=== PATIENT | female | born 1985 | race Caucasian/White ===

== ENCOUNTER → 2019-02-07 10:23 | Outpatient (CLI) | payer OTHER, SELFPAY ==
[2019-02-07 12:12] LABS: Add Manual Diff / Slide Review NO; Basophils Absolute Auto 0 /uL (0-100); Basophils Percent Auto 0.4 % (0-2); Eosinophils Absolute Auto 100 /uL (0-450); Eosinophils Percent Auto 1.5 % (2-4); Hematocrit 38.3 % (36-46); Hemoglobin 12.8 g/dL (12.0-16.0); Lymphocytes Absolute Auto 1300 /uL (1100-4500); Lymphocytes Percent Auto 21.4 % (25-40); Mean Corpuscular HGB Conc 33.5 % (30-36); Mean Corpuscular Hemoglobin 31.7 PG (26-34); Mean Corpuscular Volume 94.8 fL (80-100); Monocytes Absolute Auto 400 /uL (0-900); Monocytes Percent Auto 6.4 % (3-14); Neutrophils Absolute Auto 4200 /uL (1500-7000); Neutrophils Percent Auto 70.3 % (50-75); Platelet Count 225 X10^3/uL (150-400); Red Blood Cell Count 4.04 X10^6/uL (4.0-5.2); Red Cell Distribution Width 12.5 % (11.6-14.8)
[2019-02-07 12:21] LABS: Appearance Urine UA CLEAR; Bilirubin Urine UA NEGATIVE (NEGATIVE); Color Urine UA YELLOW; Glucose Urine UA NEGATIVE (Negative); Ketones Urine UA NEGATIVE (NEGATIVE); Leukocyte Esterase Urine UA NEGATIVE (NEGATIVE); Nitrite Urine UA NEGATIVE (Negative); Occult Blood Urine UA NEGATIVE (Negative); Protein Urine UA NEGATIVE (Negative); Specific Gravity Urine UA <=1.005 (1.000-1.035); Urobilinogen Urine UA 0.2 E.U./dL (0.2)
[2019-02-07 12:29] LABS: pH Urine UA 6.5 (4.5-8.0)
[2019-02-07 15:38] LABS: Hepatitis B Surface Antigen NEGATIVE s/c (NEGATIVE)
[2019-02-07 15:55] LABS: HIV 1 & 2 Ab/Ag 4th Gen Combo NEGATIVE (NEGATIVE); Hep C Virus Ab w/Reflex Quant NEGATIVE s/c (NEGATIVE)
[2019-02-09 16:46] LABS: Varicella IgG Antibody < 135.00 Index (< 135.00)
[2019-02-09 19:37] LABS: RPR Screen Nonreactive (Nonreactive)
== END ==
PROVIDERS: PCP Nurse Practitioner Family; Visit Provider Specialist
DX: O09.529 Supervision of elderly multigravida, unspecified trimester (principal); Z34.81 Encounter for supervision of other normal pregnancy, first trimester
CPT/HCPCS: 36415; 80055; 81003; 81420; 86787; 86803; 86850; 86900; 86901; 87077; 87086; 87389

== ENCOUNTER → 2019-03-15 15:20 | Outpatient (CLI) | payer OTHER, SELFPAY ==
[2019-03-20 16:37] LABS: AFP, Serum 30.7 ng/mL; Calc Gestational Age 18.9; Est Date Determined by ULTRASOUND; Maternal Weight 224 lbs; Mother Ethnic Origin CAUCASIAN; Number of Fetuses 1; Prev Pregnancies Down Syndrome N
== END ==
PROVIDERS: Family Provider Nurse Practitioner Family; PCP Nurse Practitioner Family; Visit Provider Specialist
DX: Z34.82 Encounter for supervision of other normal pregnancy, second trimester (principal); Z3A.18 18 weeks gestation of pregnancy
CPT/HCPCS: 36415; 82105

== ENCOUNTER → 2019-03-24 14:14 | Outpatient (CLI) | payer OTHER, SELFPAY ==
--- NOTE | 2019-03-24 14:17 | DI.US.S_ITS ---
PROCEDURE: US OB >= 14 WEEKS FETUS INDICATIONS: ANATOMY OUTSIDE/PRIOR DATING DATA: Last menstrual period (LMP): 11/10/18 LMP-based estimated date of delivery (CARMELINA): 08/18/19. First dating scan (date and location): 01/18/19. Estimated date of delivery (CARMELINA) from first dating scan: 08/10/19. TECHNIQUE: Real-time scanning was performed of the fetus, with image documentation and biometric measurements. COMPARISON: [facility], , OB <= 14 WEEKS FETUS, 01/18/2019, 10:17. FINDINGS: General: A single living intrauterine gestation is present. Presentation: Breech. Placenta: Placental position is anterior, without previa. Amniotic fluid index: 15.2 cm, normal range is 5-24 cm. heart rate: 150 beats per minute. Maternal cervical canal: 3.4 cm long. Normal lower limit is 2.5 cm. biometrics: Biparietal diameter: 20 weeks 1 day Head circumference: 20 weeks 6 days Abdominal circumference: 19 weeks 6 days Femur length: 20 weeks 2 days Estimated gestational age from initial scan: 20 weeks 1 day Composite gestational age from present scan: 20 weeks 2 days Estimated weight and percentile: 335 g; 45 percentile Measurement variability for biometric dating: +/- 7 days from 14 weeks to 15 weeks 6 days gestation, +/- 10 days from 16 weeks to 21 weeks 6 days gestation, +/- 2 weeks from 22 weeks to 27 weeks 6 days gestation, +/- 3 weeks for 28 weeks gestation or later. weight reference: 4500 g or EFW >90/95% is considered macrosomia or large for gestational age. EFW <10% is small for gestational age. EFW 5% or less is considered intra-uterine growth restriction. Anatomic survey: Neuro: Ventricles are non-dilated at less than 10 mm. Cisterna magna is normal at 3-11 mm. Cerebellum is normal in size and morphology. Nuchal skin fold: Normal at less than 6 mm between 14-21 weeks gestational age. Face: Nose and lips, facial profile are normal. Spine: No evidence for spina bifida. Heart: 4-chambered heart is present, with normal ventricular outflow tracts. Diaphragm: Diaphragm is intact. Stomach: Left-sided stomach is present. Kidneys: No hydronephrosis. Normal is less than 5 mm in 2nd trimester, less than 7 mm in 3rd trimester. Cord: 3-vessel cord has orthotopic insertion. Bladder: Normal in size. Extremities: All 4 extremities identified. IMPRESSION: 1. Single living IUP redemonstrated and interval growth is normal.Normal 2. Normal anatomic survey. Dictated by: Mitch Allen [facility] Interpreted: Hilda Alberto MD on 03/24/2019 at 16:48 Approved by: Hilda Alberto M.D. on 03/24/2019 at 17:59
== END ==
PROVIDERS: PCP Nurse Practitioner Family; Visit Provider Specialist
DX: Z34.82 Encounter for supervision of other normal pregnancy, second trimester (principal); Z3A.20 20 weeks gestation of pregnancy
CPT/HCPCS: 76811

== ENCOUNTER → 2019-04-26 11:15 | Outpatient (CLI) | payer OTHER, SELFPAY ==
[2019-04-26 12:51] LABS: Hematocrit 33.7 % (36-46); Hemoglobin 11.4 g/dL (12.0-16.0)
[2019-04-26 13:31] LABS: GTT (PREG) 1 Hour PP 50gm Dose 87 mg/dL (76-139)
== END ==
PROVIDERS: PCP Nurse Practitioner Family; Visit Provider Specialist
DX: Z34.82 Encounter for supervision of other normal pregnancy, second trimester (principal)
CPT/HCPCS: 36415; 82950; 85014; 85018

== ENCOUNTER → 2019-07-12 09:53 | Outpatient (CLI) | payer OTHER, SELFPAY ==
[2019-07-13 09:37] LABS: Strep Grp B PCR NEG for Grp B Strep
== END ==
PROVIDERS: PCP Nurse Practitioner Family; Visit Provider Specialist
DX: Z34.83 Encounter for supervision of other normal pregnancy, third trimester (principal); Z3A.35 35 weeks gestation of pregnancy
CPT/HCPCS: 87653

== ENCOUNTER 2019-08-14 08:50 | Outpatient (CLI) | payer OTHER, SELFPAY ==
--- NOTE | 2019-08-14 09:34 | P.TNLD_ITS ---
Visit Information Visit Information Date of evaluation: 08/14/19 Reason for Evaluation: Yes non-stress test non-stress test reason: other (Postdates) [facility] Medical History (Updated 08/14/19 @ 09:34 by Nasrin Awad MD) Vaginal delivery (Resolved ~03/2017) Surgical History (Updated 08/03/17 @ 05:10 by Conversion Provider) Status post colposcopy Evaluation Evaluation Baseline heart rate: 130 Variability: Moderate (11-25) monitor accelerations: Present monitor decelerations: Absent Contraction Frequency (minutes): 0 Category of Tracing: I Diagnosis, Plan/Disposition Final Diagnosis (1) Postmaturity , 40-42 weeks gestation: Current Visit: Yes Status: Acute Plan/Disposition Plan: Reactive nonstress test. Patient is scheduled for induction in 2 days. OB Disposition: home
== END 2019-08-14 09:39 | disposition home or self-care (01) ==
LOC: LABOR 09:00 → OB 08-15 13:34
PROVIDERS: PCP Nurse Practitioner Family; Referring Provider Specialist; Visit Provider Specialist
DX: O48.0 Post-term pregnancy (principal); Z3A.40 40 weeks gestation of pregnancy; Z01.812 Encounter for preprocedural laboratory examination
CPT/HCPCS: 59025; 87635; G0378; G0379

== ENCOUNTER → 2019-08-14 14:58 | Outpatient (ROUT) | payer OTHER, SELFPAY ==
[2019-08-14 16:17] LABS: COVID19 -Nasal RAPID Negative (Negative)
== END ==
PROVIDERS: PCP Nurse Practitioner Family; Visit Provider Registered Nurse
DX: Z01.812 Encounter for preprocedural laboratory examination (principal)
CPT/HCPCS: 87635

== ENCOUNTER 2019-08-16 09:53 | Inpatient (IN) | payer OTHER, SELFPAY ==
[2019-08-16 12:22] LABS: Add Manual Diff / Slide Review NO; Basophils Absolute Auto 0 /uL (0-100); Basophils Percent Auto 0.3 % (0-2); Eosinophils Absolute Auto 100 /uL (0-450); Eosinophils Percent Auto 0.8 % (2-4); Hematocrit 36.9 % (36-46); Hemoglobin 12.1 g/dL (12.0-16.0); Lymphocytes Absolute Auto 2900 /uL (1100-4500); Mean Corpuscular HGB Conc 32.8 % (30-36); Mean Corpuscular Hemoglobin 30.5 PG (26-34); Mean Corpuscular Volume 92.9 fL (80-100); Monocytes Absolute Auto 500 /uL (0-900); Monocytes Percent Auto 6.1 % (3-14); Neutrophils Absolute Auto 5000 /uL (1500-7000); Neutrophils Percent Auto 58.8 % (50-75); Platelet Count 249 X10^3/uL (150-400); Red Blood Cell Count 3.98 X10^6/uL (4.0-5.2); Red Cell Distribution Width 13.8 % (11.6-14.8); White Blood Cell Count 8.4 X10^3/uL (4.5-11.0)
[2019-08-16] MEDS: LACTATED RINGERS 1,000 ML 100 ML IV (12:29)
[2019-08-16] MEDS: OXYTOCIN PREMIX 30 UNIT/500 ML PLAST..BAG IV (12:29)
--- NOTE | 2019-08-16 16:25 | PM.OBHP.1 ---
OB HPI Date/Time Date of admission: 08/16/19 Date Patient Seen: 08/16/19 Time Patient Seen: 08:00 History of Present Condition Chief complaint: Induction of Labor per Nurse : 2 Para: 1 Estimated Date of Delivery: 08/10/19 Estimated Gestational Age (weeks): 40 Narrative: Emily Fermin is a 34 year old female admitted for postdates induction Indications Indication for induction OB: post dates History of Present care: good care, initiated at week # (9), number of visits (13) and pounds weight gain (14) Dating criteria: based on 1st trimester US only Ultrasounds: normal mid trimester US Obstetrical complications: none Medical complications: none Preadmission Labs Blood type: O (+) positive -: Antibody screen: negative, GBS status: negative, HBsAG: negative, HIV: negative and RPR/VDLR: negative -: Chlamydia screen: not detected and Gonorrhea screen: not detected -: Rubella: immune and Varicella: not immune HCAB: negative Cell-free DNA: Normal female 1 hr GTT: 87 Prior (ies) History: 03/25/2017 female 7 lb 13 oz 40 weeks Evaluation Evaluation Baseline heart rate: 125 Variability: Moderate (11-25) monitor accelerations: Present monitor decelerations: Absent Contraction Frequency (minutes): 0 Category of Tracing: I Cervical dilation (cm): 2 Cervical effacement (%): 75 station: -2 Laboratory results: Laboratory Tests 08/16/19 08/16/19 10:00 10:00 WBC 8.4 RBC 3.98 L Hgb 12.1 Hct 36.9 MCV 92.9 MCH 30.5 MCHC 32.8 RDW 13.8 Plt Count 249 Neut % (Auto) 58.8 Lymph % (Auto) 34.0 [place] % (Auto) 6.1 Eos % (Auto) 0.8 L Baso % (Auto) 0.3 Neut # (Auto) 5000 Lymph # (Auto) 2900 [place] # (Auto) 500 Eos # (Auto) 100 Baso # (Auto) 0 Blood Type O Positive Antibody Screen Negative [facility] Medical History (Updated 08/14/19 @ 09:34 by Nasrin Awad MD) Vaginal delivery (Resolved ~03/2017) Surgical History (Updated 08/03/17 @ 05:10 by Conversion Provider) Status post colposcopy Meds Home Medications and Allergies Allergies Allergy/AdvReac Type Severity Reaction Status Date / Time No Known Drug Allergies Allergy Verified 08/14/19 14:24 Review of Systems Review of Systems Narrative: No headaches, scotomata, epigastric pain. Good movement. No leakage of fluid. ROS: Yes All systems reviewed with the patient and are negative except as otherwise documented Exam Vital Signs (past 8 hours): Blood pressure 109/68, pulse 67 Narrative Exam Narrative: HEENT exam within normal limits. Lungs are clear to auscultation percussion. Heart is regular rate and rhythm no S3-S4 or murmurs. Fetus is vertex. Extremities without edema and nontender. Objective Labs Result Diagrams: 08/16/19 10:00 Labs: Laboratory Results - last 24 hr 08/16/19 08/16/19 10:00 10:00 WBC 8.4 RBC 3.98 L Hgb 12.1 Hct 36.9 MCV 92.9 MCH 30.5 MCHC 32.8 RDW 13.8 Plt Count 249 Neut % (Auto) 58.8 Lymph % (Auto) 34.0 [place] % (Auto) 6.1 Eos % (Auto) 0.8 L Baso % (Auto) 0.3 Neut # (Auto) 5000 Lymph # (Auto) 2900 [place] # (Auto) 500 Eos # (Auto) 100 Baso # (Auto) 0 Blood Type O Positive Antibody Screen Negative Assessment and Plan Assessment and Plan Assessment and Plan narrative: 40 and 6/7 weeks by dates admitted for Pitocin induction. Both patient and her are tested negative for the coronavirus
--- NOTE | 2019-08-16 21:32 | P.PCNOB_ITS ---
Labor & Delivery Delivery date: 08/16/19 Intrapartal events: None Induction method: per pitocin protocol Delivery monitor: external FHT and external uterine Route of delivery: L&D Laceration Description: Perineal - 2nd Degree Delivery repair: chromic (3 0) Estimated blood loss (mL): 250 Anesthesia type: Epidural Narrative: Patient arrived on Labor and delivery for induction for postdates. She was started on Pitocin. She had rupture membranes with clear fluid. She received an epidural catheter for pain control. heart tones category 1 to category 2 throughout labor. The patient delivered spontaneously, over an intact perineum. A nuchal cord was released. The viable female infant was placed on maternal abdomen. After the cord stopped pulsating the cord was clamped, cut, and cord bloods obtained. The placenta delivered spontaneously, intact, with 3 vessels. A second-degree perineal tear was repaired in the usual 2 layer fashion. Both infant mother doing well. [place] Baby 1: gender: Female Presentation: vertex position: Right Occiput Anterior Placenta delivery description: Spontaneous cord vessel description: Nuchal Cord score (1 min): 9 score (5 min): 9 Plan for aftercare: Routine care
[2019-08-16 23:57] VITALS: BP 101/78
[2019-08-17] MEDS: LANOLIN OINT 7 GM 1 APPLIC TOP ×2 (00:23→13:35)
[2019-08-17] MEDS: DERMOPLAST SPRAY 20% 60 ML 1 SPRAY TOP (00:24)
[2019-08-17] MEDS: IBUPROFEN 600 MG TABLET PO ×3 (00:24→13:35)
[2019-08-17 06:35] LABS: Hematocrit 33.9 % (36-46); Hemoglobin 11.5 g/dL (12.0-16.0)
[2019-08-17] MEDS: DOCUSATE 100 MG CAPSULE PO (08:19)
--- NOTE | 2019-08-17 11:04 | PM.OBDS.1 ---
Discharge Providers Provider Date of admission: 08/16/19 09:53 Discharge Date: 08/17/19 Primary care physician: SENDY Cyr Consults: 08/17/19 21:30 Consult to Salon Customer Experience Specialist Routine Comment: Discharge provider: Nasrin Awad MD Summary Hospital Course Date Patient Seen: 08/17/19 Time Patient Seen: 11:05 Hospital Course: Patient arrived on Labor and delivery for Pitocin induction for postdates. She received an epidural catheter for pain control. She had a spontaneous vaginal delivery of a viable female , Ramos, weighing 8 lb 9 oz. She had repair of a second-degree tear. She did well with mild lochia, no headaches, scotomata, epigastric pain. She is urinating and ambulating well. She is breast-feeding without difficulty. Peripartum Data Infant Delivery Method: Natural Vaginal Laceration description: Perineal - 2nd Degree Procedures: Pitocin induction, epidural catheter, spontaneous vaginal delivery, repair of second-degree tear. complications: none 1: Gender: Female Disposition of : home Discharge Diagnosis (1) Vaginal delivery: Status: Acute Status at Discharge Cognitive/behavioral status at discharge: oriented Functional status at discharge: independent ambulation Overall status at discharge: patient is progressing back to baseline Time Spent with Patient Time attestation: Total time spent providing and/or coordinating discharge services: Time spent: Less than 30 minutes Objective Labs Result Diagrams: 08/17/19 06:20 Labs: Laboratory Results - last 24 hr 08/16/19 08/16/19 08/17/19 10:00 10:00 06:20 WBC 8.4 RBC 3.98 L Hgb 12.1 11.5 L Hct 36.9 33.9 L MCV 92.9 MCH 30.5 MCHC 32.8 RDW 13.8 Plt Count 249 Neut % (Auto) 58.8 Lymph % (Auto) 34.0 [place] % (Auto) 6.1 Eos % (Auto) 0.8 L Baso % (Auto) 0.3 Neut # (Auto) 5000 Lymph # (Auto) 2900 [place] # (Auto) 500 Eos # (Auto) 100 Baso # (Auto) 0 Blood Type O Positive Antibody Screen Negative Exam Vital Signs (past 8 hours): Blood pressure 121/72, pulse of 55, temperature 98? Narrative Exam Narrative: Abdomen is soft, nontender. Uterus is firm, at U, nontender. Mild lochia. Extremities without edema and nontender. Patient's blood type is O positive, she is rubella immune, received the Tdap in the 3rd trimester. Discharge Plan Discharge Plan Patient Disposition: Home Discharge orders & Medications Prescriptions: New docusate sodium [DOK] 100 mg Capsule 100 mg PO DAILY Qty: 30 RF: 0 ibuprofen 600 mg Tablet 600 mg PO Q6HR PRN (Reason: Pain, Mild (1-3)) Qty: 30 RF: 0 docusate sodium 100 mg capsule 100 mg PO DAILY Qty: 30 RF: 0 ibuprofen 600 mg tablet 600 mg PO Q6H PRN (Reason: pain) Qty: 60 RF: 0 Follow up/Referrals: Nasrin Awad MD [Physician] - 1 Month Juliana Fair ARNP [Primary Care Provider] - Diet/Activity/Treatments Diet: Regular Activity: Nothing in vagina for 4 weeks Skin/Wound/Dressing Care Report to your healthcare provider any signs of infection, such as:: chills, fever and increased pain Discharge Data Primary Care Provider: Juliana Fair Attending Provider: Nasrin Awad Admit Date/Time: 08/16/19 09:53
[2019-08-17 14:35] VITALS: BP 101/78; PULSE 70; RESP 18; TEMP 36.6
== END 2019-08-17 18:21 | disposition home or self-care (01) | DRG 807 ==
PROVIDERS: Admitting Provider Specialist; PCP Nurse Practitioner Family; Referring Provider Specialist; Visit Provider Specialist
DX: O48.0 Post-term pregnancy (principal); Z37.0 Single live birth; Z3A.40 40 weeks gestation of pregnancy; O70.1 Second degree perineal laceration during delivery; O69.81X0 Labor and delivery complicated by cord around neck, without compression, not applicable or unspecified
CPT/HCPCS: 01967; 36415; 59050; 59400; 85014; 85018; 85025; 86850; 86900; 86901; G0379; J2590

== ENCOUNTER → 2020-09-14 10:47 | Outpatient (CLI) | payer OTHER, SELFPAY ==
[2020-09-14 11:06] LABS: Add Manual Diff / Slide Review NO; Basophils Absolute Auto 0 /uL (0-100); Basophils Percent Auto 0.6 % (0-2); Eosinophils Absolute Auto 100 /uL (0-450); Eosinophils Percent Auto 1.1 % (2-4); Hematocrit 40.6 % (36-46); Hemoglobin 13.4 g/dL (12.0-16.0); Lymphocytes Absolute Auto 2200 /uL (1100-4500); Lymphocytes Percent Auto 36.1 % (25-40); Mean Corpuscular Hemoglobin 31.4 PG (26-34); Mean Corpuscular Volume 95.1 fL (80-100); Monocytes Absolute Auto 400 /uL (0-900); Monocytes Percent Auto 6.3 % (3-14); Neutrophils Absolute Auto 3500 /uL (1500-7000); Neutrophils Percent Auto 55.9 % (50-75); Platelet Count 232 X10^3/uL (150-400); Red Blood Cell Count 4.27 X10^6/uL (4.0-5.2); Red Cell Distribution Width 13.4 % (11.6-14.8); White Blood Cell Count 6.2 X10^3/uL (4.5-11.0)
[2020-09-14 11:28] LABS: Alanine Aminotransferase 11 IU/L (<35); Albumin 4.5 g/dL (3.5-5.0); Albumin Globulin Ratio 1.7 (1.0-2.8); Alkaline Phosphatase 61 U/L (38-126); Aspartate Aminotransferase 21 IU/L (14-36); Bilirubin Total 0.5 mg/dL (0.2-1.3); Blood Urea Nitrogen 14 mg/dL (7-17); Calcium 10.1 mg/dL (8.4-10.2); Carbon Dioxide 26 mmol/L (22-32); Chloride 104 mmol/L (98-107); Estimated Glomerular Filt Rate > 60.0 mL/min (>60); Globulin 2.7 g/dL (1.7-4.1); Glucose 105 mg/dL (70-100); HEMOLYSIS < 15 (0-50); Potassium 4.7 mmol/L (3.4-5.1); Sodium 138 mmol/L (137-145); Total Protein 7.2 g/dL (6.3-8.2)
[2020-09-14 11:59] LABS: TSH w/ Reflex to FT4 1.27 uIU/mL (0.47-4.68)
== END ==
PROVIDERS: PCP Nurse Practitioner Family; Referring Provider Physician Assistant; Visit Provider Physician Assistant
DX: E07.89 Other specified disorders of thyroid (principal)
CPT/HCPCS: 36415; 80053; 84443; 85025

== ENCOUNTER → 2020-09-17 10:41 | Outpatient (CLI) | payer OTHER, SELFPAY ==
--- NOTE | 2020-09-17 10:42 | DI.US.S_ITS ---
PROCEDURE: US THYROID INDICATIONS: NEW ONSET RIGHT THYROID MASS TECHNIQUE: Real-time scanning was performed of the thyroid gland, with image documentation. COMPARISON: None. FINDINGS: Right: Thyroid lobe measures 3.2 x 3.9 x 6.6 cm, and is homogeneous in echotexture. Left: Thyroid lobe measures 1.5 x 2.1 x 5.6 cm, and is homogenous in echotexture. Isthmus: 3.9 mm thick. Nodule number: 1 Location: Right middle and inferior thirds of the thyroid gland. Size: 2.8 x 3.3 x 4.4 cm. Composition: Predominantly cystic Echogenicity: Predominantly anechoic Shape: wider than tall. Margins: Smoothly marginated Echogenic foci: Punctate Total points: 3 ACR TI-RADS category: TR 3 Nodule number: 2 Location: Middle 3rd of the left thyroid lobe. Size: 1.0 x 1.7 x 2.5 cm. Composition: Predominantly cystic Echogenicity: Anechoic, but with a nodule within the cystic component. Shape: Predominantly anechoic Margins: Smoothly Echogenic foci: None Total points: 0 ACR TI-RADS category: TR 0 IMPRESSION: The right-sided large nodule warrants fine needle aspiration biopsy, based on its average size of greater than 2.5 cm. The left-sided nodule is predominantly cystic but with a solid nodule within. At time of fine needle aspiration biopsy on the left a fine needle aspiration biopsy of the nodular component of right cystic structure is recommended. ACR TI-RADS definitions and recommendations: TI-RADS 1 (benign): 0 points. FNA not needed. TI-RADS 2 (not suspicious): 2 points. FNA not needed. TI-RADS 3 (mildly suspicious): 3 points. * FNA if 2.5 cm or larger, follow up if 1.5 cm or larger (at 1, 3, and 5 years). TI-RADS 4 (moderately suspicious): 4-6 points. * FNA if 1.5 cm or larger, follow up if 1 cm or larger (at 1, 2, 3, and 5 years). TI-RADS 5 (highly suspicious): 7 points or more. * FNA if 1 cm or larger, follow up if 0.5 cm or larger (every year for 5 years). Dictated by: Dhaval Carmona M.D. on 09/17/2020 at 13:41 Approved by: Dhaval Carmona M.D. on 09/17/2020 at 13:55
== END ==
PROVIDERS: PCP Student in an Organized Health Care Education/Training Program; Referring Provider Physician Assistant; Visit Provider Physician Assistant
DX: E04.2 Nontoxic multinodular goiter (principal)
CPT/HCPCS: 76536

== ENCOUNTER → 2020-10-16 09:52 | Outpatient (CLI) | payer OTHER, SELFPAY ==
--- NOTE | 2020-10-16 | DI.US.S_ITS ---
PROCEDURE: US FINE NEEDLE ASPIRATION INDICATIONS: BILATERAL THYROID NODULES TECHNIQUE: The indications, alternatives, benefits, risks, and complications of the procedure were explained to the patient. Written informed consent was obtained and placed in the chart. The area of interest was examined sonographically and a site was chosen for ultrasound guided percutaneous sampling. The skin was prepared and draped in the usual fashion, and anesthetized with 1% lidocaine infiltrated from the skin down to the lesion. Multiple passes were then performed, with contents emptied into an appropriate pathology specimen container. A bandage was applied to the area of access at completion of the study. COMPARISON: [facility], , THYROID, 09/17/2020, 10:54. FINDINGS: Location(s) of lesion(s) sampled: 1. Left middle 3rd thyroid nodule measuring 1.0 x 1.7 x 2.5 cm on prior evaluation containing a more central solid nodular component. 2. Right thyroid lobe predominantly cystic nodule measuring 2.8 x 3.3 x 4.4 cm with areas of internal septation posteriorly. [place]: 25 gauge hypodermic needles. Number of passes: 6 samples were obtained from each nodule. Medications: 1% lidocaine for local anaesthesia. Complications: None. IMPRESSION: Successful ultrasound-guided bilateral thyroid nodule fine needle aspiration, with cytology results pending. Dictated by: Forest Sanchez M.D. on 10/16/2020 at 17:43 Approved by: Forest Sanchez M.D. on 10/16/2020 at 17:47
--- NOTE | 2020-10-16 | PATH_ITS ---
Note [facility] Accession Number: [id number] TESTS RESULT FLAG UNITS REF RANGE LAB 01 L THYROID NODULE DIAGNOSIS: 02 L THYROID NODULE INCONCLUSIVE. BETHESDA CATEGORY III. ATYPIA OF UNDETERMINED SIGNIFICANCE. COMMENT: The specimen has limited cellularity, but demonstrates rare follicular groups with mild cytologic atypia and scattered dense colloid. Molecular testing or a repeat aspirate may be helpful, if clinically indicated. Pathologist ICD10: 02 R89.6, E04.1 01 History of depression , x 2, uncompicated, Dr. Awad 02 Reason for addendum: To report molecular studies (ThyGeNEXT with reflex to ThyraMIR). . Thyroid FNA: . ThyGeNEXT Oncogene Panel: No mutations detected. . ThyraMIR Velia Air Analysis Technician: Very low risk of malignancy. . COMMENT: Please see the complete reports from [facility], [place], [place] (specimen ID [id number] (ThyGeNEXT) and (ThyraMIR)) reported on (11/07/2020). [facility]/11/08/2020 Addendum Electronically Signed by Martha Butler MD, Pathologist 02 Martha Butler MD, Pathologist NPI- [id number] Kvng Jordan, Community Theater Actor ([facility]) 01 30 CC, PINK, CLEAR Also received 5 quick stained, 5 alcohol fixed slides, and 1 RNA vial. /[facility] 10/17/2020 12[address] [facility] FLAG LEGEND: L-Low Normal,H-High Normal,LL-Alert Low,HH-Alert High <-Panic Low,>-Panic High,A-Abnormal,AA-Critical Abnormal Performed at: 01 =Z [facility] [address] [place] [address] [address], [place] [address] Henrry Sanchez MD, 02 LCLWA [facility] [id number] [place] [id number] Dolly Montes MD, Performed at: 01 [facility] [address], [place], [place] [id number] MD Henrry Sanchez MD Phone: [phone]
--- NOTE | 2020-10-16 | PATH_ITS ---
Note [facility] Accession Number: [id number] TESTS RESULT FLAG UNITS REF RANGE LAB Clinician Provided Cytology Information No. of containers..01 Other (Miscellaneous) No. of containers..00 Previously Prepared Cytology Slide R THYROID NODULE DIAGNOSIS: R THYROID NODULE INADEQUATE, INSUFFICIENT CELLS FOR STUDY. BETHESDA CATEGORY I. NONDIAGNOSTIC: CYST FLUID ONLY. SCANT CELLULARITY. COMMENT: Specimen processed and examined, but nondiagnostic because it consists almost exclusively of histiocytes; interpretation is limited by insufficient follicular cells. The possibility of a cystic papillary thyroid carcinoma cannot be completely excluded. Recommend correlation with cyst size and complexity on ultrasound to assist with further management of the lesion. Pathologist ICD10: 02 E04.1 01 History of depression 2> , x 2, uncompicated, Dr. Awad 02 Martha Butler MD, Pathologist NPI- [id number] Dallin Spivey, Field Artillery Cannoneer ([facility]) 01 30 CC, BROWN, CLOUDY Also received 5 quick stained, 5 alcohol fixed slides, and 1 RNA vial. /[facility] 10/17/[address] [place] [address] FLAG LEGEND: L-Low Normal,H-High Normal,LL-Alert Low,HH-Alert High <-Panic Low,>-Panic High,A-Abnormal,AA-Critical Abnormal Performed at: 01 =Z [facility] [address] [place] [address] [address] [facility], [place] [address] Henrry Sanchez MD, 02 [facility] [address] [place] [address] Dolly Montes MD, Performed at: 01 [facility] [address] [place] [address], [place], [place] [id number] MD Henrry Sanchez MD Phone: [phone]
== END ==
PROVIDERS: PCP Student in an Organized Health Care Education/Training Program; Referring Provider Student in an Organized Health Care Education/Training Program; Visit Provider Student in an Organized Health Care Education/Training Program
DX: E04.2 Nontoxic multinodular goiter (principal)
CPT/HCPCS: 10005

== ENCOUNTER → 2022-04-22 13:40 | Outpatient (CLI) | payer OTHER, SELFPAY | PROVIDERS: PCP Student in an Organized Health Care Education/Training Program; Visit Provider Nurse Practitioner Family | DX: R10.9 Unspecified abdominal pain (principal) | CPT/HCPCS: 87077; 87086; 87186 ==

== ENCOUNTER → 2023-06-06 11:25 | Outpatient (CLI) | payer OTHER, SELFPAY ==
--- NOTE | 2023-06-06 11:27 | DI.RAD.S_ITS ---
PROCEDURE: XR CHEST 2V INDICATIONS: Cough TECHNIQUE: 2 views of the chest were acquired. COMPARISON: [facility], , CHEST 2 VIEW, 06/11/2014, 8:51. FINDINGS: Surgical changes and devices: None. Lungs and pleura: Possible mild opacity at the left base. No pleural effusions or pneumothorax. Mediastinum: Mediastinal contours are normal. Heart size is normal. Bones and chest wall: No suspicious bony abnormalities. Soft tissues appear unremarkable. IMPRESSION: Mild opacity at the left base may represent infection versus atelectasis or scarring. Consider follow-up radiograph in 6-12 weeks to assess stability or resolution. Dictated by: Poli Schulz M.D. on 06/06/2023 at 12:27 Approved by: Poli Schulz M.D. on 06/06/2023 at 12:28
== END ==
LOC: RAD 11:27
PROVIDERS: PCP Nurse Practitioner; Referring Provider Nurse Practitioner Family; Visit Provider Nurse Practitioner Family
DX: R05.9 Cough, unspecified (principal)
CPT/HCPCS: 71046

== ENCOUNTER → 2024-01-21 15:24 | Outpatient (CLI) | payer OTHER, SELFPAY ==
[2024-01-21 16:32] LABS: Influenza A - CEPHEID Flu A NEGATIVE (NEGATIVE); Influenza B - CEPHEID Flu B NEGATIVE (NEGATIVE); Respiratory Syncytial Virus Negative (Negative)
[2024-01-21 16:33] LABS: COVID-19 CEPHEID 4-PLEX PCR Negative (Negative)
== END ==
PROVIDERS: PCP Nurse Practitioner; Visit Provider Nurse Practitioner Family
DX: J02.9 Acute pharyngitis, unspecified (principal)
CPT/HCPCS: 0241U; 87070